=== PATIENT | female | born 1960 | race Caucasian/White ===

== ENCOUNTER 2017-04-07 21:54 | Emergency (ER) | payer SELFPAY ==
[2017-04-07 22:01] VITALS: BP 165/74; BMI 24.0
[2017-04-07] MEDS ORDERED: LEVAQUIN TAB 500 MG PO STA (22:42)
[2017-04-07] MEDS ORDERED: PREDNISONE TAB 20 MG PO ONE ×2 (22:43→23:09)
[2017-04-07] MEDS ORDERED: MOTRIN TAB 600 MG PO STA (22:46)
--- NOTE | 2017-04-07 22:50 | DR.GENAD ---
HPI - PCP Primary Care Physician: NFD - Complaint/Symptoms Chief Complaint:: DIZZINESS AND VOMITING X 2 DAYS AGO; UPPER RESP DRAINING Self Treatment fo Chief Complaint: ALBUTEROL BREATHING TREATMENT; EAVN SELTZER PLUS; THERAFLU; ROBITUSSIN - Source History Provided: Patient - Mode of Arrival Mode of Arrival: Ambulatory - Timing Onset of Chief Complaint: 04/06/17 PMH - PMH Past Medical History: Yes Past Medical History: [place] Past Medical History Comment: FEMORAL STENT TO LEFT LEG Past Surgical History: Yes Surgical History: Hysterectomy - Family History History of Family Medical Conditions: No Family Medical History: Diabetes Mellitus, Cancer, Hypertension - Social History Alcohol Use: None Do you use any recreational Drugs:: No Lives With: Family Lives Where: Home - infectious screening In the last 2 months have you had wt loss of >10#?: NO Have you had fever, night sweats or hemotysis?: No Have you traveled outside the country in the last 6 months?: No Isolation: Standard PE - Vital Signs Vitals: Temperature 100.2 F Pulse Rate 89 Respiratory Rate 22 Blood Pressure 165/74 O2 Sat by Pulse Oximetry 96 ROR - Labs Reviewed Laboratory Results Reviewed?: Yes (all lab result reviewed and discussed with patient) - Diagnosis Discharge Problem: Bronchitis Sinusitis, acute maxillary Qualifiers: Recurrence: not specified as recurrent Qualified Code(s): J01.00 - Acute maxillary sinusitis, unspecified - Discharge Plan Disposition: HOME, SELF-CARE Condition: Stable Prescriptions: Ciprofloxacin HCl [CIPRO 500 MG TAB *] 500 mg PO Q12H #20 tab Loratadine [Claritin] 10 mg PO DAILY #30 tab - Follow ups/Referrals Follow ups/Referrals: ELMA,Iyla [Primary Care Provider] - 3 days LAMAR DIOR [STAFF PHYSICIAN] - 3 days - Instructions Instructions: Sinusitis, Adult, [id number], Acute Bronchitis
[2017-04-07] MEDS ORDERED: FLONASE NASAL SPRAY ENOSTRIL SCH (23:00)
[2017-04-07] MEDS ORDERED: MOTRIN TAB 600 MG PO ONE (23:09)
[2017-04-07] MEDS ORDERED: LEVAQUIN TAB 500 MG ONE (23:09)
== END 2017-04-07 23:10 | disposition home or self-care (01) ==
LOC: ER 21:54
DX: J40 Bronchitis, not specified as acute or chronic (principal); J01.80 Other acute sinusitis
CPT/HCPCS: 87502; 99282; J7506

== ENCOUNTER 2024-08-18 21:26 | Inpatient (IN) ==
[2024-08-18 21:44] VITALS: BMI 28.5
--- NOTE | 2024-08-18 22:33 | DR.EXTPAIN ---
HPI Time seen Time Seen by Provider: 08/18/24 22:26 PCP Primary Care Physician: jacqueline Complaint/Symptoms Chief Complaint:: pt ambulated to triage room with complaint of chronic pain to lt lower leg COVID-19 Coronavirus risk:travel/contact w/high risk person: No Has patient experienced Coronavirus symptoms: No Nurses notes reviewed Nurses Notes Review: Yes Source History Provided: Patient Mode of arrival Mode of Arrival: Ambulatory Timing Onset of Chief Complaint: 07/28/24 PMH PMH Past Medical History: Yes Past Medical History: CHF, COPD, Coronary Artery Disease, Dyslipidemia, Hypertension and [place] Past Surgical History: Yes Surgical History: [employer] Surgery, Hysterectomy and Other Past Surgical History Comment: lt leg arteriogram with anginoplasty Family History History of Family Medical Conditions: Yes Family Medical History: Diabetes Mellitus, Cancer and Hypertension Social History Does patient currently use any type of tobacco product: Yes Have you used tobacco products in the last 12 months: Yes Type of Tobacco Use: Cigarettes Does any household member use tobacco: Yes Alcohol Use: None Do you use any recreational Drugs:: No Lives With: Family Lives Where: Home Travel Risk Coronavirus risk:travel/contact w/high risk person: No Has patient experienced Coronavirus symptoms: No Infectious screening In the last 2 months have you had wt loss of >10#?: NO Have you had fever, night sweats or hemotysis?: No Have you traveled outside the country in the last 6 months?: No Isolation: Standard ROS Review of Systems Constitutional: No Symptoms Reported and See HPI; negative Fever Eyes: No Symptoms Reported and See HPI ENTM: No Symptoms Reported and See HPI; negative Nose Discharge or Nose Congestion Respiratoy: No Symptoms Reported and See HPI; negative Moist Cough or Short of Breath Cardiovascular: No Symptoms Reported and See HPI; negative Chest Pain Gastrointestinal/Abdominal: No Symptoms Reported and See HPI; negative Abdominal Pain or Vomiting Genitourinary: No Symptoms Reported Neurological: No Symptoms Reported and See HPI; negative Headache Musculoskeletal: Leg (LEFT), Ankle (LEFT) and Foot (LEFT) Integumentary: No Symptoms Reported, See HPI and Other (DISTAL LEFT LEG DISCOLORED AND COLD.) Hematologic/Lymphatic: No Symptoms Reported and See HPI Endocrine: No Symptoms Reported and See HPI Psychiatric: No Symptoms Reported and See HPI All Other Systems: Reviewed and Negative PE Vital Signs Vitals: Vital Signs Temperature 98.2 F Pulse Rate 90 Respiratory Rate 19 Respiratory Rate 19 Respiratory Rate 18 Blood Pressure 168/72 Blood Pressure 166/72 Blood Pressure 190/77 Blood Pressure 190/77 Blood Pressure 178/81 Blood Pressure 178/81 Blood Pressure 177/62 Blood Pressure 195/82 Blood Pressure 194/83 Blood Pressure 197/83 Blood Pressure 197/83 Blood Pressure 192/84 Blood Pressure 192/80 Blood Pressure 206/88 O2 Sat by Pulse Oximetry 94 General Limitations: No Limitations General Appearance: Alert and In No Apparent Distress Head Head Exam: Normal Inspection Eyes Eye exam: Normal Appearance, PERRL and EOMI; negative Scleral Icterus or Conjunctival Injection ENT ENT Exam: Normal Exam, Normal Oropharynx, Normal External Ear Exam and TM's Normal Bilaterally Neck Neck Exam: Normal Inspection and Trachea Midline; negative Tenderness Chest Chest Inspection: Normal Inspection and Symmetric Chest Wall Rise; negative Tenderness Respiratory Respiratory Exam: Normal Lung Sounds Bilat; negative Accessory Muscle Use, Chest Wall Tenderness or Respiratory Distress Cardiovascular Cardiovascular Exam: Regular Rate, Normal Rhythm and Normal Heart Sounds; negative Systolic Murmur or Diastolic Murmur Abdominal Exam Abdominal Exam: Normal Inspection, Normal Bowel Sounds and Soft; negative Tenderness Extremities Extremities Exam: Normal Capillary Refill, Edema and Calf Tenderness (AND SWELLING.) ROR Labs Reviewed 08/22/24 05:51 08/22/24 05:51 Laboratory: WBC 9.1 X10^3/uL (3.6-10.0) 08/20/24 05:14 RBC 4.45 X10^6/uL (3.5-5.4) 08/20/24 05:14 Hgb 13.9 g/dL (12.0-16.0) 08/20/24 05:14 Hct 42.4 % (36.0-47.0) 08/20/24 05:14 MCV 95.3 fL (80.0-100.0) 08/20/24 05:14 MCH 31.1 pg (27.0-34.0) 08/20/24 05:14 MCHC 32.7 g/dL (33.0-35.0) L 08/20/24 05:14 RDW 15.2 % (11.6-16.5) 08/20/24 05:14 Plt Count 285 X10^3/uL (150.0-450.0) 08/20/24 05:14 MPV 8.3 fL (7.4-11.0) 08/20/24 05:14 Neut % (Auto) 86.9 % (42.0-75.0) H 08/20/24 05:14 Lymph % (Auto) 7.5 % (21.0-51.0) L 08/20/24 05:14 Keith % (Auto) 4.7 % (0.0-13.0) 08/20/24 05:14 Eos % (Auto) 0.2 % (0.9-2.9) L 08/20/24 05:14 Baso % (Auto) 0.7 % (0.2-1.0) 08/20/24 05:14 Neut # (Auto) 7.9 x10^3/uL (2.2-4.8) H 08/20/24 05:14 Lymph # (Auto) 0.7 X10^3/uL (1.3-2.9) L 08/20/24 05:14 Keith # (Auto) 0.4 x10^3/uL (0.3-0.8) 08/20/24 05:14 Eos # (Auto) 0.0 x10^3/uL (0.0-0.2) 08/20/24 05:14 Baso # (Auto) 0.1 X10^3/uL (0.0-0.1) 08/20/24 05:14 Absolute Nucleated RBC 0.1 /100WBC 08/20/24 05:14 Sodium 131 mmol/L (136-145) L 08/20/24 05:14 Corrected Sodium 132 mmol/L (136-145) L 08/20/24 05:14 Potassium 4.3 mmol/L (3.5-5.1) 08/20/24 05:14 Chloride 95 mmol/L (98-107) L 08/20/24 05:14 Carbon Dioxide 33.0 mmol/L (21-32) H 08/20/24 05:14 BUN 15 mg/dL (7-18) 08/20/24 05:14 Creatinine 0.72 mg/dL (0.55-1.02) 08/20/24 05:14 Est GFR (MDRD) Af Amer > 60 (>60) 08/20/24 05:14 Est GFR (MDRD) Non-Af > 60 (>60) 08/20/24 05:14 Glucose 123 mg/dL (65-99) H 08/20/24 05:14 Calcium 8.6 mg/dL (8.5-10.1) 08/20/24 05:14 Corrected Calcium 9.2 mg/dL (8.5-10.1) 08/20/24 05:14 Magnesium 2.0 mg/dL (2.0-2.9) 08/19/24 05:25 Total Bilirubin 0.40 mg/dL (0.2-1.0) 08/20/24 05:14 AST 7 Units/L (15-37) L 08/20/24 05:14 ALT 15 Units/L (12-78) 08/20/24 05:14 Alkaline Phosphatase 120 Units/L (46-116) H 08/20/24 05:14 Total Protein 7.6 g/dL (6.4-8.2) 08/20/24 05:14 Albumin 3.3 g/dL (3.4-5.0) L 08/20/24 05:14 Globulin 4.3 g/dL (2.5-4.5) 08/20/24 05:14 Albumin/Globulin Ratio 0.8 Ratio (1.1-2.1) L 08/20/24 05:14 Opioid Opioid Risk Tool Age (José Miguel box if 16-45): No History of Preadolescent Sexual Abuse: No Total: 0 Total Score Risk Category: Low Risk Copyright: Dakotah NERI predicting aberrant behaviors Discharge Plan Diagnosis Discharge Problem: Ischemic leg Hypertension Qualifiers: Hypertension type: primary hypertension Qualified Code(s): I10 - Essential (primary) hypertension Discharge Plan Patient Disposition: ADMITTED INPATIENT Condition: Stable Prescription drug monitoring program results: PDMP reviewed and no concerns identified Orders to Discharge Patient Discharge Orders: Discharge by Transfer to Outside Facility (Routine); Ordered 08/22/24 Ordered By: Sathish Laguerre
[2024-08-18 22:56] LABS: BASOPHILS # (AUTO) 0.1 X10^3/uL (0.0-0.1); EOSINOPHILS # (AUTO) 0.1 x10^3/uL (0.0-0.2); HEMATOCRIT 43.1 % (36.0-47.0); HEMOGLOBIN 14.8 g/dL (12.0-16.0); LYMPHOCYTES # (AUTO) 1.8 X10^3/uL (1.3-2.9); LYMPHOCYTES % (AUTO) 18.7 % (21.0-51.0); MONOCYTES # (AUTO) 0.7 x10^3/uL (0.3-0.8)
[2024-08-18 22:58] LABS: ALANINE AMINOTRANSFERASE 17 Units/L (12-78); ALBUMIN 3.6 g/dL (3.4-5.0); ALKALINE PHOSPHATASE 124 Units/L (46-116); ASPARTATE AMINO TRANSFERASE 10 Units/L (15-37); BLOOD UREA NITROGEN 15 mg/dL (7-18); CALCIUM 8.9 mg/dL (8.5-10.1); CARBON DIOXIDE 29.2 mmol/L (21-32); CHLORIDE 96 mmol/L (98-107); GLUCOSE 102 mg/dL (65-99); POTASSIUM 4.3 mmol/L (3.5-5.1); SODIUM 134 mmol/L (136-145); TOTAL PROTEIN 7.9 g/dL (6.4-8.2); eGFR NON BLACK RACES > 60 (>60)
[2024-08-18 23:06] LABS: BASOPHILS % (AUTO) 1.1 % (0.2-1.0); MEAN CORPUSCULAR HGB CONC 34.4 g/dL (33.0-35.0); MEAN CORPUSCULAR VOLUME 93.1 fL (80.0-100.0); MEAN PLATELET VOLUME 8.1 fL (7.4-11.0); MONOCYTES % (AUTO) 7.1 % (0.0-13.0); NEUTROPHILS # (AUTO) 7.1 x10^3/uL (2.2-4.8); NEUTROPHILS % (AUTO) 72.1 % (42.0-75.0); PLATELET COUNT 260 X10^3/uL (150.0-450.0); RED BLOOD COUNT 4.63 X10^6/uL (3.5-5.4); RED CELL DISTRIBUTION WIDTH 14.9 % (11.6-16.5); WHITE BLOOD COUNT 9.9 X10^3/uL (3.6-10.0)
[2024-08-19] MEDS: ZOFRAN INJ 4 MG VIAL IVP ONE (00:02)
[2024-08-19] MEDS: NS 1,000 ML IV 1,000 ML IV SCH (00:02)
[2024-08-19] MEDS: DILAUDID INJ IM ONE (00:05)
--- NOTE | 2024-08-19 01:13 | VAS ---
EXAM: LOWER EXT ARTERIAL-UNILATERAL HISTORY: LT FEM/POP BYPASS; COMPARISON: None available. TECHNIQUE: Multiple james scale and color flow Doppler images of the left lower extremity arterial system were obtained. Interrogation of the common femoral artery, superficial femoral artery, popliteal artery, and tibial arteries was performed. FINDINGS: Left femoral/popliteal bypass occluded. Monophasic waveforms are seen in the popliteal artery, posterior tibial and dorsalis pedis arteries secondary to reconstituted flow. IMPRESSION: Occluded left femoral/popliteal bypass graft. Monophasic arterial waveforms present in the left popliteal, posterior tibial and dorsalis pedis arteries. THIS IS AN ELECTRONICALLY VERIFIED FINAL REPORT 08/19/2024 1:09 AM - Electronically signed by Orlando Squires MD
[2024-08-19] MEDS: LOVENOX INJ 80 MG SYR SC ONE (01:32)
[2024-08-19] MEDS: APRESOLINE INJ 20 MG VIAL IVP ONE ×2 (01:36→02:32)
[2024-08-19] MEDS ORDERED: ZOFRAN INJ 4 MG VIAL IVP PRN (04:28)
[2024-08-19] MEDS: DILAUDID INJ IVP PRN (04:41)
[2024-08-19] MEDS: APRESOLINE INJ 20 MG VIAL IVP PRN (05:07)
[2024-08-19 05:55] LABS: BASOPHILS # (AUTO) 0.1 X10^3/uL (0.0-0.1); BASOPHILS % (AUTO) 0.8 % (0.2-1.0); EOSINOPHILS % (AUTO) 0.1 % (0.9-2.9); HEMATOCRIT 44.6 % (36.0-47.0); HEMOGLOBIN 15.1 g/dL (12.0-16.0); LYMPHOCYTES % (AUTO) 9.6 % (21.0-51.0); MEAN CORPUSCULAR HEMOGLOBIN 31.7 pg (27.0-34.0); MEAN CORPUSCULAR HGB CONC 33.9 g/dL (33.0-35.0); MEAN CORPUSCULAR VOLUME 93.5 fL (80.0-100.0); MEAN PLATELET VOLUME 8.1 fL (7.4-11.0); MONOCYTES # (AUTO) 0.6 x10^3/uL (0.3-0.8); MONOCYTES % (AUTO) 5.5 % (0.0-13.0); NEUTROPHILS # (AUTO) 9.1 x10^3/uL (2.2-4.8); PLATELET COUNT 299 X10^3/uL (150.0-450.0); RED BLOOD COUNT 4.77 X10^6/uL (3.5-5.4); WHITE BLOOD COUNT 10.8 X10^3/uL (3.6-10.0)
[2024-08-19 06:07] LABS: ALANINE AMINOTRANSFERASE 16 Units/L (12-78); ALBUMIN 3.5 g/dL (3.4-5.0); ALKALINE PHOSPHATASE 129 Units/L (46-116); ASPARTATE AMINO TRANSFERASE 12 Units/L (15-37); BLOOD UREA NITROGEN 15 mg/dL (7-18); CALCIUM 8.5 mg/dL (8.5-10.1); CARBON DIOXIDE 31.6 mmol/L (21-32); CHLORIDE 98 mmol/L (98-107); COR NA(FOR HYPERGLY) 135 mmol/L (136-145); CREATININE 0.64 mg/dL (0.55-1.02); GLUCOSE 141 mg/dL (65-99); SODIUM 134 mmol/L (136-145); TOTAL PROTEIN 8.2 g/dL (6.4-8.2); eGFR NON BLACK RACES > 60 (>60)
[2024-08-19] MEDS ORDERED: PROVENTIL NEB TX 0.083% 2.5MG/ 3ML NEB PRN (06:12)
[2024-08-19] MEDS ORDERED: PULMICORT NEB TX 0.5 MG NEB ONE (07:56)
[2024-08-19] MEDS ORDERED: OMNIPAQUE 350 mg/mL 50 mL BTL 50 ML ONE (08:11)
[2024-08-19] MEDS: PULMICORT NEB TX 0.5 MG NEB SCH (08:11)
[2024-08-19] MEDS ORDERED: OMNIPAQUE 350 mg/mL 100 mL BTL 100 ML ONE (08:11)
--- NOTE | 2024-08-19 08:19 | DR.H&P ---
H&P History & Physical for Day of: H&P Date: 08/19/24 Chief Complaint Chief Complaint: acute pain left leg History of Present Illness History of Present Illness: 64 yo female with history of left femoral-popliteal bypass several years ago in [place]. Patient now presents with several day history of acute pain in the left leg and has a cool left leg but can still move all of her toes. Past history of cardiac catherization showing calcifications but no coronary stents placed Patient also with significant tobacco abuse history, COPD, congestive heart failure, hyperlipidemia and hypertension. Patient continues to smoke heavily. Left lower extremity arterial Doppler study consistent with occlusion of the left femoral-popliteal bypass graft. Past Medical History Past Medical History: CHF, COPD, Coronary Artery Disease, Dyslipidemia, Hypertension and [place] Past Surgical History Surgical History: Hysterectomy and Other Family History Family Medical History: Cancer, Coronary Artery Disease and Hypertension Social History Does patient currently use any type of tobacco product: Yes Have you used tobacco products in the last 12 months: Yes Type of Tobacco Use: Cigarettes How many years tobacco product used: 50 Does any household member use tobacco: No Alcohol Use: None Drug Use: None Medications Home Medications: Home Medications Medication Instructions Recorded Confirmed Type albuterol sulfate 90 mcg/actuation inhalation 02/20/23 History aerosol inhaler amlodipine 10 mg tablet 10 mg PO DAILY 02/20/2301/27 History aspirin 81 mg tablet,delayed 81 mg PO DAILY 02/20/23 1 04/23/22 History release carvedilol 25 mg tablet 25 mg PO BID 02/20/23 History ezetimibe 10 mg tablet 10 mg PO QDAY 02/20/2302/20 History ezetimibe 10 mg tablet (Zetia) 10 mg PO DAILY 02/20/23 02/20/23 History fluticasone fur. 100 mcg-umeclid 1 ea inhalation QDAY 02/20/23 02/20/23 History 62.5 mcg-vilant 25 mcg inhalat.powder (Trelegy Ellipta) furosemide 20 mg tablet 20 mg PO BID 02/20/23 History gabapentin 300 mg capsule 300 mg PO TID 02/20/2302/20 History hydrochlorothiazide 25 mg tablet 25 mg PO DAILY 02/20/23 History isosorbide mononitrate 60 mg 60 mg PO QDAY 02/20/23 History tablet,extended release 24 hr losartan 100 mg tablet 100 mg PO DAILY 02/20/23 History montelukast 10 mg tablet 10 mg PO QDAY 02/20/2302/20 History rosuvastatin 40 mg tablet 40 mg PO QDAY 02/20/2302/20 History spironolactone 25 mg tablet 25 mg PO QDAY 02/20/23 History Allergies Allergies Allergy/AdvReac Type Severity Reaction Status Date / Time No Known Drug Allergies Allergy Verified 04/07/17 22:17 Labs 08/19/24 05:25 08/19/24 05:25 Labs: Laboratory WBC 10.8 X10^3/uL (3.6-10.0) H 08/19/24 05:25 RBC 4.77 X10^6/uL (3.5-5.4) 08/19/24 05:25 Hgb 15.1 g/dL (12.0-16.0) 08/19/24 05:25 Hct 44.6 % (36.0-47.0) 08/19/24 05:25 MCV 93.5 fL (80.0-100.0) 08/19/24 05:25 MCH 31.7 pg (27.0-34.0) 08/19/24 05:25 MCHC 33.9 g/dL (33.0-35.0) 08/19/24 05:25 RDW 15.0 % (11.6-16.5) 08/19/24 05:25 Plt Count 299 X10^3/uL (150.0-450.0) 08/19/24 05:25 MPV 8.1 fL (7.4-11.0) 08/19/24 05:25 Neut % (Auto) 84.0 % (42.0-75.0) H 08/19/24 05:25 Lymph % (Auto) 9.6 % (21.0-51.0) L 08/19/24 05:25 [place]uel % (Auto) 5.5 % (0.0-13.0) 08/19/24 05:25 Eos % (Auto) 0.1 % (0.9-2.9) L 08/19/24 05:25 Baso % (Auto) 0.8 % (0.2-1.0) 08/19/24 05:25 Neut # (Auto) 9.1 x10^3/uL (2.2-4.8) H 08/19/24 05:25 Lymph # (Auto) 1.0 X10^3/uL (1.3-2.9) L 08/19/24 05:25 Deuel # (Auto) 0.6 x10^3/uL (0.3-0.8) 08/19/24 05:25 Eos # (Auto) 0.0 x10^3/uL (0.0-0.2) 08/19/24 05:25 Baso # (Auto) 0.1 X10^3/uL (0.0-0.1) 08/19/24 05:25 Absolute Nucleated RBC 0.0 /100WBC 08/19/24 05:25 Sodium 134 mmol/L (136-145) L 08/19/24 05:25 Corrected Sodium 135 mmol/L (136-145) L 08/19/24 05:25 Potassium 4.0 mmol/L (3.5-5.1) 08/19/24 05:25 Chloride 98 mmol/L (98-107) 08/19/24 05:25 Carbon Dioxide 31.6 mmol/L (21-32) 08/19/24 05:25 BUN 15 mg/dL (7-18) 08/19/24 05:25 Creatinine 0.64 mg/dL (0.55-1.02) 08/19/24 05:25 Est GFR (MDRD) Af Amer > 60 (>60) 08/19/24 05:25 Est GFR (MDRD) Non-Af > 60 (>60) 08/19/24 05:25 Glucose 141 mg/dL (65-99) H 08/19/24 05:25 Calcium 8.5 mg/dL (8.5-10.1) 08/19/24 05:25 Corrected Calcium TNP 08/19/24 05:25 Magnesium 2.0 mg/dL (2.0-2.9) 08/19/24 05:25 Total Bilirubin 0.40 mg/dL (0.2-1.0) 08/19/24 05:25 AST 12 Units/L (15-37) L 08/19/24 05:25 ALT 16 Units/L (12-78) 08/19/24 05:25 Alkaline Phosphatase 129 Units/L (46-116) H 08/19/24 05:25 Total Protein 8.2 g/dL (6.4-8.2) 08/19/24 05:25 Albumin 3.5 g/dL (3.4-5.0) 08/19/24 05:25 Globulin 4.7 g/dL (2.5-4.5) H 08/19/24 05:25 Albumin/Globulin Ratio 0.7 Ratio (1.1-2.1) L 08/19/24 05:25 Review of Systems Constitutional: See HPI Eyes: No Symptoms Reported ENT: No Symptoms Reported Respiratory: No Symptoms Reported Cardiovascular: No Symptoms Reported Gastrointestinal: No Symptoms Reported Genitourinary: No Symptoms Reported Musculoskeletal: See HPI Skin: No Symptoms Reported Neurological: See HPI Physical Exam Vital Signs: Vital Signs Temperature 97.5 F Pulse Rate [Left Radial] 100 Respiratory Rate 18 Respiratory Rate 19 Respiratory Rate 21 Respiratory Rate 19 Blood Pressure [Left Arm] 168/60 Blood Pressure 165/67 Blood Pressure 168/74 Blood Pressure 165/72 Blood Pressure 168/72 Blood Pressure 166/72 Blood Pressure 190/77 Blood Pressure 190/77 Blood Pressure 178/81 Blood Pressure 178/81 Blood Pressure 177/62 Blood Pressure 195/82 Blood Pressure 194/83 Blood Pressure 197/83 Blood Pressure 197/83 Blood Pressure 192/84 Blood Pressure 192/80 O2 Sat by Pulse Oximetry 91 Oriented: Normal, Time, Person and Place Eyes: Normal Ear: Normal Nose: Normal Throat: Normal Respiratory: Wheezes Throughout Cardiovascular: Normal and Other (Palpable femoral pulses bilaterally. Cool left leg with no palpable distal pulses. Right foot warm at this time) : Normal Auscultation: Bowel Sounds: Normal Palpation: Normal Tenderness: Normal Skin: Normal Musculoskeletal: Normal Psychiatric: Normal Mood Description: Anxious Affect: Normal Speech Pattern: Clear and Appropriate Assessment/Plan (1) Atherosclerosis of [place] arteries of extremities with rest pain, left leg: Status: Acute Plan: Patient on therapeutic Lovenox. Will plan CT angiogram of the aorta with bilateral runoff today. Pain medications as necessary (2) Hypertension: Qualifiers: Hypertension type: primary hypertension Qualified Code(s): I10 - Essential (primary) hypertension Status: Acute Plan: Home medications (3) Chronic ischemic heart disease, unspecified: Status: Acute Plan: Home medications. Will review records from her felt puller Dr. Vera to decide if we need cardiology involved here. (4) Essential (primary) hypertension: Status: Acute Plan: Home medications (5) Congestive heart disease: Status: Acute Plan: Home medications, review Dr. Vera's records (6) Chronic obstructive pulmonary disease, unspecified: Status: Acute Plan: Home medications (7) Tobacco abuse: Status: Acute Plan: Nicotine patch (8) Dyslipidemia: Status: Acute Plan: Home medications Review H&P Reviewed: Yes Patient was examined?: Yes
[2024-08-19] MEDS: LOVENOX INJ 80 MG SYR SC SCH (08:45)
[2024-08-19] MEDS ORDERED: ISOSORBIDE MONONITRATE ER 24-HR PO SCH (09:00)
[2024-08-19] MEDS ORDERED: NORVASC TAB 10 MG PO SCH (09:00)
[2024-08-19] MEDS ORDERED: PATIENT'S HOME MEDICATION (Fluticasone-Umeclidin-Vilanter [Trelegy Ellipta] 100-62.5-25 mc IN SCH (09:00)
[2024-08-19] MEDS ORDERED: COREG TAB 25 MG PO SCH ×2 (09:00)
[2024-08-19] MEDS ORDERED: SINGULAIR TAB 10 MG PO SCH (09:00)
[2024-08-19] MEDS ORDERED: COZAAR PO SCH (09:00)
[2024-08-19] MEDS: NEURONTIN CAP 300 MG PO SCH (09:52)
[2024-08-19] MEDS: LASIX PO SCH (09:52)
[2024-08-19] MEDS: ISOSORBIDE MONONITRATE ER 24-HR PO SCH (09:52)
[2024-08-19] MEDS: ASPIRIN EC 81 MG PO SCH (09:52)
[2024-08-19] MEDS: NICOTINE PATCH TD SCH (09:52)
[2024-08-19] MEDS: COZAAR PO SCH (09:53)
[2024-08-19] MEDS: NORVASC TAB 10 MG PO SCH (09:53)
--- NOTE | 2024-08-19 09:56 | CT ---
EXAM: CT ANGIOGRAM ABDOMEN, PELVIS, AND BILATERAL LOWER EXTREMITIES WITH AND WITHOUT CONTRAST 3-DIMENSIONAL RECONSTRUCTED IMAGES AT INDEPENDENT WORKSTATION. HISTORY: acute ischemia left leg, occluded left fem-pop byp; . COMPARISON: Ultrasound from same date. TECHNIQUE: Axial CT images were obtained through the abdomen and pelvis and bilateral lower extremities both before after the intravenous administration of contrast. Coronal and sagittal reformatted images were included. MIP images were also performed. 3D reconstructions were performed with concurrent physician supervision at a separate independent workstation and MIP images were also performed. Informed written consent was obtained from the patient prior to contrast administration. All CT scans at this facility use dose modulation, iterative reconstruction, and/or weight based dosing when appropriate to reduce radiation dose to as low as reasonably achievable. FINDINGS: VASCULAR FINDINGS: ABDOMEN/PELVIS: Moderate abdominal aortic mixed plaque without aneurysm or stenosis. Moderate proximal celiac trunk stenosis secondary to mixed plaque. Superior mesenteric artery is patent without significant stenosis. Widely patent renal arteries. Patent inferior mesenteric artery. Left common iliac artery stent is patent. Completely occluded left external iliac artery stent and left external iliac artery. Moderate right common and external iliac artery plaque with approximate 50% stenosis in the mid right external iliac artery. LEFT LOWER EXTREMITY: Completely occluded left common femoral artery. Left profunda femoral artery is patent with mild flow. Left superficial femoral artery stent is completely occluded. Left femoral bypass graft is completely occluded. There is distal reconstitution in the left superficial femoral artery with small amount of flow. Left popliteal artery is somewhat diminutive but patent with mild calcified plaque. Patent left tibioperoneal trunk. The distal calf arteries are diminutive and poorly opacified, however there is arterial flow present in the mid to distal left calf arteries. RIGHT LOWER EXTREMITY: Mild mixed right common iliac artery plaque without stenosis. Patent right profunda femoral artery. Mixed plaque in the right superficial femoral artery with scattered areas of mild and moderate stenosis. Patent right popliteal artery and tibioperoneal trunk with mild mixed plaque. Right calf arteries are patent and there is a 3-vessel runoff to the right ankle. NON VASCULAR FINDINGS: Mild right basilar atelectasis. Unremarkable liver, gallbladder, spleen, and pancreas. Low-density left adrenal thickening without discrete nodule. Right adrenal is normal. Kidneys are unremarkable. No abnormally distended or focally thickened bowel loops. Mild colonic stool burden. No free peritoneal air or fluid. Unremarkable urinary bladder. Absent uterus. No acute osseous findings. Mild lumbar spondylosis. IMPRESSION: 1. Completely occluded left external iliac artery stent, left common/superficial femoral artery stent, and left femoral bypass graft. There is distal reconstitution in the distal left superficial femoral artery. Left calf arteries are diminutive but opacified with flow seen to the distal left calf. 2. Moderate right lower extremity peripheral vascular disease. 3-vessel runoff to the right ankle. THIS IS AN ELECTRONICALLY VERIFIED FINAL REPORT 08/19/2024 9:53 AM - Electronically signed by Emmanuel Adams MD
[2024-08-19] MEDS ORDERED: DUONEB 0.5 MG/3 MG (3 mL) NEB SCH (13:00)
[2024-08-19] MEDS: ALDACTONE TAB 25 MG PO SCH (13:22)
[2024-08-19] MEDS: ZETIA TAB 10 MG PO SCH (13:26)
[2024-08-19] MEDS: NICOTINE PATCH TD ONE (13:27)
[2024-08-19] MEDS: COREG TAB 3.125 MG PO SCH (13:48)
[2024-08-19] MEDS: CRESTOR TAB 10 MG PO SCH (21:01)
[2024-08-19] MEDS: SINGULAIR TAB 10 MG PO SCH (21:05)
[2024-08-20] MEDS: HIBICLENS WASH EXT PRN (04:49)
[2024-08-20 06:15] LABS: BASOPHILS # (AUTO) 0.1 X10^3/uL (0.0-0.1); BASOPHILS % (AUTO) 0.7 % (0.2-1.0); EOSINOPHILS % (AUTO) 0.2 % (0.9-2.9); HEMATOCRIT 42.4 % (36.0-47.0); HEMOGLOBIN 13.9 g/dL (12.0-16.0); LYMPHOCYTES # (AUTO) 0.7 X10^3/uL (1.3-2.9); LYMPHOCYTES % (AUTO) 7.5 % (21.0-51.0); MEAN CORPUSCULAR HEMOGLOBIN 31.1 pg (27.0-34.0); MEAN CORPUSCULAR HGB CONC 32.7 g/dL (33.0-35.0); MEAN CORPUSCULAR VOLUME 95.3 fL (80.0-100.0); MEAN PLATELET VOLUME 8.3 fL (7.4-11.0); MONOCYTES # (AUTO) 0.4 x10^3/uL (0.3-0.8); MONOCYTES % (AUTO) 4.7 % (0.0-13.0); NEUTROPHILS # (AUTO) 7.9 x10^3/uL (2.2-4.8); NEUTROPHILS % (AUTO) 86.9 % (42.0-75.0); PLATELET COUNT 285 X10^3/uL (150.0-450.0); RED BLOOD COUNT 4.45 X10^6/uL (3.5-5.4); RED CELL DISTRIBUTION WIDTH 15.2 % (11.6-16.5); WHITE BLOOD COUNT 9.1 X10^3/uL (3.6-10.0)
[2024-08-20 06:19] LABS: ALANINE AMINOTRANSFERASE 15 Units/L (12-78); ALBUMIN 3.3 g/dL (3.4-5.0); ALKALINE PHOSPHATASE 120 Units/L (46-116); ASPARTATE AMINO TRANSFERASE 7 Units/L (15-37); BLOOD UREA NITROGEN 15 mg/dL (7-18); CALCIUM 8.6 mg/dL (8.5-10.1); CHLORIDE 95 mmol/L (98-107); COR CA(FOR HYPOALB) 9.2 mg/dL (8.5-10.1); COR NA(FOR HYPERGLY) 132 mmol/L (136-145); CREATININE 0.72 mg/dL (0.55-1.02); GLUCOSE 123 mg/dL (65-99); POTASSIUM 4.3 mmol/L (3.5-5.1); SODIUM 131 mmol/L (136-145); TOTAL PROTEIN 7.6 g/dL (6.4-8.2); eGFR NON BLACK RACES > 60 (>60)
[2024-08-20 10:46] LABS: ABG BASE EXCESS 6.3 mmol/L (-2.0-2.0)
[2024-08-20 10:52] LABS: ABG ALLEN TEST POS
[2024-08-20 12:56] LABS: ABG BASE EXCESS 5.3 mmol/L (-2.0-2.0)
[2024-08-20] MEDS: PULMICORT NEB TX 0.5 MG NEB SCH (13:00)
[2024-08-20] MEDS: DUONEB 0.5 MG/3 MG (3 mL) NEB SCH (13:00)
--- NOTE | 2024-08-20 13:10 | EKG ---
Test Reason : preop Blood Pressure : */* mmHG Vent. Rate : 78 BPM Atrial Rate : 78 BPM P-R Int : 144 ms QRS Dur : 76 ms QT Int : 368 ms P-R-T Axes : 72 93 0 degrees QTc Int : 419 ms Normal sinus rhythm Rightward axis Septal infarct (cited on or before 26-MAY-2022) Abnormal ECG When compared with ECG of 20-FEB-2023 17:15, premature atrial complexes are no longer present Questionable change in initial forces of Anterior leads T wave inversion now evident in Inferior leads Confirmed by Solis Palafox MD ([id number]) on 08/20/2024 1:18:44 PM Referred By: Confirmed By: Solis Palafox MD
--- NOTE | 2024-08-20 15:09 | RAD ---
EXAM: CHEST, 1 VIEW HISTORY: hypoxia,pre-op; COMPARISON: 06/26/2024 TECHNIQUE: AP portable FINDINGS: Stable cardiac silhouette. Pulmonary vascular engorgement. Mild prominent perihilar interstitial and alveolar opacities. Mild bibasilar atelectasis. No large pleural effusion or visible pneumothorax. IMPRESSION: Pulmonary vascular engorgement with suspected central pulmonary edema. Mild bibasilar atelectasis. THIS IS AN ELECTRONICALLY VERIFIED FINAL REPORT 08/20/2024 3:06 PM - Electronically signed by Emmanuel Adams MD
--- NOTE | 2024-08-20 23:33 | NOTE.SOAP ---
Soap Note Note for Day of Date of Exam: 08/20/24 Subjective Data Subjective Data: Patient is a 64-year-old female with occluded left external iliac stent, occluded common femoral artery stent, occluded left femoral-popliteal bypass graft with severe ischemia of the left leg. Patient was to be scheduled for arterial invention today but anesthesia refused to do the case due to her pulmonary status. Patient with PaO2 on room air 25. Oxygen saturation on 6 L was 91% however pCO2 was greater than 60. Patient is a heavy smoker. Objective Data Temperature: 98.4 F Pulse Rate: 80 Respiratory Rate: 20 Blood Pressure: 117/59 O2 Sat by Pulse Oximetry: 91 Objective Data: Cool left foot. No palpable pulse in the left groin or left ankle Assessment Assessment: Critical limb threatening left leg with occluded left iliac artery stent and occluded left femoral-popliteal bypass graft. Plan Plan: We discussed transfer of this patient to her previous surgeon, Dr. Best at [facility] in [place].
[2024-08-21 05:17] LABS: ABG BASE EXCESS 8.2 mmol/L (-2.0-2.0)
[2024-08-21 05:18] LABS: ABG ALLEN TEST POS; ABG HCO3 37.5 mmol/L (22-26)
[2024-08-21 06:22] LABS: BASOPHILS # (AUTO) 0.1 X10^3/uL (0.0-0.1); BASOPHILS % (AUTO) 0.9 % (0.2-1.0); EOSINOPHILS % (AUTO) 0.3 % (0.9-2.9); HEMOGLOBIN 13.1 g/dL (12.0-16.0); LYMPHOCYTES # (AUTO) 1.1 X10^3/uL (1.3-2.9); MEAN CORPUSCULAR HEMOGLOBIN 31.4 pg (27.0-34.0); MEAN CORPUSCULAR HGB CONC 32.8 g/dL (33.0-35.0); MEAN CORPUSCULAR VOLUME 95.8 fL (80.0-100.0); MEAN PLATELET VOLUME 8.2 fL (7.4-11.0); MONOCYTES # (AUTO) 0.5 x10^3/uL (0.3-0.8); MONOCYTES % (AUTO) 6.1 % (0.0-13.0); NEUTROPHILS % (AUTO) 79.7 % (42.0-75.0); PLATELET COUNT 227 X10^3/uL (150.0-450.0); RED BLOOD COUNT 4.18 X10^6/uL (3.5-5.4); WHITE BLOOD COUNT 8.8 X10^3/uL (3.6-10.0)
[2024-08-21 06:47] LABS: ALANINE AMINOTRANSFERASE 20 Units/L (12-78); ALBUMIN 2.9 g/dL (3.4-5.0); ALKALINE PHOSPHATASE 105 Units/L (46-116); ASPARTATE AMINO TRANSFERASE 13 Units/L (15-37); BLOOD UREA NITROGEN 15 mg/dL (7-18); CALCIUM 8.5 mg/dL (8.5-10.1); CARBON DIOXIDE 34.1 mmol/L (21-32); CHLORIDE 101 mmol/L (98-107); COR CA(FOR HYPOALB) 9.4 mg/dL (8.5-10.1); CREATININE 0.69 mg/dL (0.55-1.02); GLUCOSE 104 mg/dL (65-99); POTASSIUM 4.5 mmol/L (3.5-5.1); SODIUM 139 mmol/L (136-145); eGFR NON BLACK RACES > 60 (>60)
[2024-08-21 08:58] LABS: ABG HCO3 33.7 mmol/L (22-26); ABG PO2 < 37.0 mmHg (80.0-100.0)
[2024-08-21 09:00] LABS: ABG HCO3 34.3 mmol/L (22-26)
[2024-08-21] MEDS: LASIX IVP ONE (11:20)
[2024-08-21] MEDS: DEPO-Medrol 80 MG VIAL IM ONE (11:21)
[2024-08-21] MEDS: NORCO 5/325 MG TAB PO PRN (22:13)
[2024-08-22 06:17] LABS: BASOPHILS # (AUTO) 0.1 X10^3/uL (0.0-0.1); BASOPHILS % (AUTO) 1.1 % (0.2-1.0); EOSINOPHILS # (AUTO) 0.1 x10^3/uL (0.0-0.2); HEMATOCRIT 40.5 % (36.0-47.0); HEMOGLOBIN 13.7 g/dL (12.0-16.0); LYMPHOCYTES # (AUTO) 1.3 X10^3/uL (1.3-2.9); LYMPHOCYTES % (AUTO) 14.9 % (21.0-51.0); MEAN CORPUSCULAR HEMOGLOBIN 32.1 pg (27.0-34.0); MEAN CORPUSCULAR HGB CONC 33.8 g/dL (33.0-35.0); MEAN CORPUSCULAR VOLUME 94.9 fL (80.0-100.0); MEAN PLATELET VOLUME 8.2 fL (7.4-11.0); MONOCYTES # (AUTO) 0.6 x10^3/uL (0.3-0.8); NEUTROPHILS # (AUTO) 6.7 x10^3/uL (2.2-4.8); PLATELET COUNT 241 X10^3/uL (150.0-450.0); RED BLOOD COUNT 4.27 X10^6/uL (3.5-5.4); RED CELL DISTRIBUTION WIDTH 14.9 % (11.6-16.5); WHITE BLOOD COUNT 8.8 X10^3/uL (3.6-10.0)
[2024-08-22 06:37] LABS: ALANINE AMINOTRANSFERASE 19 Units/L (12-78); ALBUMIN 2.9 g/dL (3.4-5.0); ALKALINE PHOSPHATASE 107 Units/L (46-116); ASPARTATE AMINO TRANSFERASE 13 Units/L (15-37); BLOOD UREA NITROGEN 11 mg/dL (7-18); CALCIUM 8.4 mg/dL (8.5-10.1); CARBON DIOXIDE 38.7 mmol/L (21-32); CHLORIDE 100 mmol/L (98-107); COR CA(FOR HYPOALB) 9.3 mg/dL (8.5-10.1); GLUCOSE 102 mg/dL (65-99); SODIUM 141 mmol/L (136-145); eGFR NON BLACK RACES > 60 (>60)
[2024-08-22] MEDS ORDERED: TUSSIONEX PENNKINETIC SUSP PO PRN (14:14)
--- NOTE | 2024-08-22 14:18 | NOTE.SOAP ---
Soap Note Note for Day of Date of Exam: 08/21/24 Subjective Data Subjective Data: Patient stable. Complaining of rest pain of the left leg. Still with good motor and sensory examination. Respiratory status is stable as well patient using BiPAP. Discussed transfer with [facility] in [place]. Dr. Bermudez is the vascular surgeon I spoke with and is the accepting surgeon. Patient to be taken onto the hospitalist service. I spoken with the hospitalist excepting the patient as well. Objective Data Temperature: 98.2 F Pulse Rate: 96 Respiratory Rate: 20 Blood Pressure: 144/63 O2 Sat by Pulse Oximetry: 95 Objective Data: Left foot cool with intact sensation and motor. Patient with BiPAP and maintaining good saturations. Assessment Assessment: Patient rest pain of the left leg with occluded left iliac stents and occluded left femoral-popliteal bypass graft. Patient with compromised respiratory status having anesthesia service will not sedate her at this hospital. Plan Plan: Patient has been accepted at [facility] in [place] but we are waiting for a bed. Hopefully bed will be available by tomorrow morning
--- NOTE | 2024-08-22 14:21 | NOTE.SOAP ---
Soap Note Note for Day of Date of Exam: 08/22/24 Subjective Data Subjective Data: Patient unchanged. Still with rest pain of the left leg awaiting bed availability for transfer to [facility] in [place], [place] Objective Data Temperature: 98.3 F Pulse Rate: 80 Respiratory Rate: 20 Blood Pressure: 148/66 O2 Sat by Pulse Oximetry: 94 Objective Data: Left leg cool. No wounds. Patient's foot is sensate, hemoglobin 13.7,Creatinine equal 0.60 Assessment Assessment: Critical ischemia of the left leg with occluded left iliac artery stents and occluded left femoral-popliteal bypass graft. Nursing assist refused sedation due to the patient's elevated pCO2 and respiratory status Plan Plan: Patient has been accepted as a patient at [facility] in [place] by Dr. Bermudez. Patient will be transferred as soon as a bed becomes available.
[2024-08-22] MEDS: ROBITUSSIN DM PO PRN (14:33)
[2024-08-22 20:10] VITALS: PULSE 82; TEMP 98.4; O2SAT 92
[2024-08-22 21:54] VITALS: RESP 16
[2024-08-22 22:24] VITALS: BP 180/80
[2024-08-22] MEDS: MAALOX or MYLANTA PO PRN (22:33)
--- NOTE | 2024-08-23 14:35 | W.DIS.FURT ---
Summary of Discharge Discharge Summary of Date Date of Exam: 08/22/24 Admission Date Date of Admission: 08/19/24 Admission Diagnosis Patient Problems (Updated 08/19/24 @ 08:17 by Sathish Laguerre) Hypertension (Acute) I10 Ischemic leg (Acute) I99.8 Hospital Course: This is a 63-year-old female with significant history of peripheral vascular disease, significant tobacco abuse, congestive heart failure, COPD, coronary disease and hyperlipidemia as well as hypertension, history of IA who presented to our emergency room with cpmplaint of severe rest pain of her left leg. She had been having pain for approximate 2 days and called her operating surgeon's office and they declined to see her telling her that they thought her pain was related to her back. She was admitted and placed on therapeutic Lovenox. Ultrasound showing complete occlusion of her left femoral popliteal bypass graft presumed be done with [place]. She was given pain medication. Follow-up CT angiogram showed complete occlusion of left iliac artery stents as well as complete occlusion of the left femoropopliteal bypass graft and complete occlusion of the left common femoral artery . I was planning peripheral based i ntervention of this ,however she has severe COPD. Room air PaO2 was 25. With oxygen her saturation was 91% however pCO2 was greater than 64 and our nurse anesthesia staff refused to sedate her. She requested to be transferred back to her operating surgeon at [facility] in [place]. I discussed this transfer with Dr. Bermudez, the partner of the operating surgeon on August 21 and he accepted the patient. It should be noted the patient has has pain but no evidence of tissue loss and no neurological impairment of the left foot yet. Unfortunately a bed was not available until approximately 6 PM on 22 August. She was transferred last night. She will have copies of the CT angiogram accompanying her. Vital Signs: Vital Signs (72 hours) 08/20/24 16:00 08/20/24 16:59 08/20/24 19:00 Temperature 97.7 F Pulse Rate 83 Pulse Rate [Left Radial] 85 Respiratory Rate 20 Blood Pressure Blood Pressure [Left Arm] 117/59 O2 Sat by Pulse Oximetry 95 88 L Oxygen Delivery Method Heated High Flow NC Bi-pap Oxygen Flow Rate FIO2% 39 08/20/24 20:00 08/20/24 20:15 08/20/24 20:15 Temperature 98.7 F Pulse Rate 84 Pulse Rate [Left Radial] 85 Respiratory Rate 20 20 Blood Pressure Blood Pressure [Left Arm] 155/68 O2 Sat by Pulse Oximetry 96 91 L Oxygen Delivery Method Bi-pap Heated High Flow NC Oxygen Flow Rate 8 FIO2% 40 08/20/24 20:50 08/20/24 20:50 08/20/24 21:53 Temperature Pulse Rate Pulse Rate [Left Radial] Respiratory Rate 22 Blood Pressure Blood Pressure [Left Arm] O2 Sat by Pulse Oximetry Oxygen Delivery Method Bi-pap Oxygen Flow Rate FIO2% 40 40 08/20/24 22:23 08/20/24 23:32 08/21/24 00:00 Temperature 98.4 F 97.5 F L Pulse Rate 80 Pulse Rate [Left Radial] 79 Respiratory Rate 20 20 19 Blood Pressure 117/59 Blood Pressure [Left Arm] 152/67 O2 Sat by Pulse Oximetry 91 L 99 Oxygen Delivery Method Bi-pap Oxygen Flow Rate FIO2% 08/21/24 04:00 08/21/24 05:24 08/21/24 05:26 Temperature 98.3 F Pulse Rate Pulse Rate [Left Radial] 86 Respiratory Rate 19 Blood Pressure Blood Pressure [Left Arm] 146/74 O2 Sat by Pulse Oximetry 97 Oxygen Delivery Method Bi-pap Bi-pap Oxygen Flow Rate FIO2% 35 35 08/21/24 07:00 08/21/24 07:24 08/21/24 08:00 Temperature 98.6 F Pulse Rate Pulse Rate [Left Radial] 76 Respiratory Rate 21 Blood Pressure Blood Pressure [Left Arm] 162/70 O2 Sat by Pulse Oximetry 97 Oxygen Delivery Method Heated High Flow NC Heated High Flow NC Oxygen Flow Rate FIO2% 37 35 38 08/21/24 08:11 08/21/24 08:11 08/21/24 12:00 Temperature 99.1 F Pulse Rate 75 Pulse Rate [Left Radial] 84 Respiratory Rate 21 Blood Pressure Blood Pressure [Left Arm] 140/66 O2 Sat by Pulse Oximetry 94 L 97 Oxygen Delivery Method Bi-pap Bi-pap Oxygen Flow Rate FIO2% 35 08/21/24 12:25 08/21/24 15:20 08/21/24 15:22 Temperature Pulse Rate Pulse Rate [Left Radial] Respiratory Rate 20 Blood Pressure Blood Pressure [Left Arm] O2 Sat by Pulse Oximetry Oxygen Delivery Method Heated High Flow NC Bi-pap Oxygen Flow Rate FIO2% 36 35 35 08/21/24 16:00 08/21/24 16:30 08/21/24 19:00 Temperature 97.6 F Pulse Rate Pulse Rate [Left Radial] 82 Respiratory Rate 19 Blood Pressure Blood Pressure [Left Arm] 122/58 O2 Sat by Pulse Oximetry 96 Oxygen Delivery Method Bi-pap Nasal Cannula Heated High Flow NC Oxygen Flow Rate 3 FIO2% 32 08/21/24 20:00 08/21/24 20:35 08/21/24 20:36 Temperature 98.2 F Pulse Rate 80 Pulse Rate [Left Radial] 96 H Respiratory Rate 20 Blood Pressure Blood Pressure [Left Arm] 144/63 O2 Sat by Pulse Oximetry 95 92 L Oxygen Delivery Method Heated High Flow NC Nasal Cannula Oxygen Flow Rate 2 FIO2% 28 08/21/24 22:13 08/21/24 23:13 08/21/24 23:58 Temperature 98.2 F Pulse Rate 96 H Pulse Rate [Left Radial] Respiratory Rate 18 16 20 Blood Pressure 144/63 Blood Pressure [Left Arm] O2 Sat by Pulse Oximetry 95 Oxygen Delivery Method Oxygen Flow Rate FIO2% 08/22/24 00:00 08/22/24 00:05 08/22/24 00:32 Temperature 97.9 F Pulse Rate 78 Pulse Rate [Left Radial] 97 H Respiratory Rate 20 20 Blood Pressure Blood Pressure [Left Arm] 153/65 O2 Sat by Pulse Oximetry 96 94 L Oxygen Delivery Method Heated High Flow NC Oxygen Flow Rate FIO2% 08/22/24 01:02 08/22/24 04:00 08/22/24 06:07 Temperature 98.0 F Pulse Rate 89 Pulse Rate [Left Radial] 97 H Respiratory Rate 20 20 Blood Pressure Blood Pressure [Left Arm] 154/65 O2 Sat by Pulse Oximetry 92 L 95 Oxygen Delivery Method Heated High Flow NC Oxygen Flow Rate FIO2% 08/22/24 07:55 08/22/24 08:08 08/22/24 08:09 Temperature 97.3 F L Pulse Rate Pulse Rate [Left Radial] 96 H Respiratory Rate 20 Blood Pressure Blood Pressure [Left Arm] 164/70 133/55 O2 Sat by Pulse Oximetry 91 L Oxygen Delivery Method Nasal Cannula Nasal Cannula Oxygen Flow Rate 2 2 FIO2% 28 08/22/24 09:12 08/22/24 12:02 08/22/24 14:21 Temperature 98.3 F 98.3 F Pulse Rate 80 Pulse Rate [Left Radial] 80 Respiratory Rate 20 20 Blood Pressure 148/66 Blood Pressure [Left Arm] 148/66 O2 Sat by Pulse Oximetry 94 L 94 L Oxygen Delivery Method Nasal Cannula Nasal Cannula Oxygen Flow Rate 2 2 FIO2% 08/22/24 16:39 08/22/24 19:00 08/22/24 19:59 Temperature 98.0 F Pulse Rate Pulse Rate [Left Radial] 88 Respiratory Rate 20 22 Blood Pressure Blood Pressure [Left Arm] 146/63 O2 Sat by Pulse Oximetry 91 L Oxygen Delivery Method Nasal Cannula Nasal Cannula Oxygen Flow Rate 2 2 FIO2% 08/22/24 20:00 08/22/24 20:05 08/22/24 20:29 Temperature 98.4 F Pulse Rate Pulse Rate [Left Radial] 82 Respiratory Rate 20 16 Blood Pressure Blood Pressure [Left Arm] 194/77 170/68 O2 Sat by Pulse Oximetry 92 L Oxygen Delivery Method Nasal Cannula Oxygen Flow Rate 2 FIO2% 08/22/24 22:15 Temperature Pulse Rate Pulse Rate [Left Radial] Respiratory Rate Blood Pressure Blood Pressure [Left Arm] 180/80 O2 Sat by Pulse Oximetry Oxygen Delivery Method Oxygen Flow Rate FIO2% Labs: Laboratory Last Values WBC 8.8 X10^3/uL (3.6-10.0) 08/22/24 05:51 RBC 4.27 X10^6/uL (3.5-5.4) 08/22/24 05:51 Hgb 13.7 g/dL (12.0-16.0) 08/22/24 05:51 Hct 40.5 % (36.0-47.0) 08/22/24 05:51 MCV 94.9 fL (80.0-100.0) 08/22/24 05:51 MCH 32.1 pg (27.0-34.0) 08/22/24 05:51 MCHC 33.8 g/dL (33.0-35.0) 08/22/24 05:51 RDW 14.9 % (11.6-16.5) 08/22/24 05:51 Plt Count 241 X10^3/uL (150.0-450.0) 08/22/24 05:51 MPV 8.2 fL (7.4-11.0) 08/22/24 05:51 Neut % (Auto) 76.0 % (42.0-75.0) H 08/22/24 05:51 Lymph % (Auto) 14.9 % (21.0-51.0) L 08/22/24 05:51 [place] % (Auto) 7.0 % (0.0-13.0) 08/22/24 05:51 Eos % (Auto) 1.0 % (0.9-2.9) 08/22/24 05:51 Baso % (Auto) 1.1 % (0.2-1.0) H 08/22/24 05:51 Neut # (Auto) 6.7 x10^3/uL (2.2-4.8) H 08/22/24 05:51 Lymph # (Auto) 1.3 X10^3/uL (1.3-2.9) 08/22/24 05:51 [place] # (Auto) 0.6 x10^3/uL (0.3-0.8) 08/22/24 05:51 Eos # (Auto) 0.1 x10^3/uL (0.0-0.2) 08/22/24 05:51 Baso # (Auto) 0.1 X10^3/uL (0.0-0.1) 08/22/24 05:51 Absolute Nucleated RBC 0.1 /100WBC 08/22/24 05:51 Sample Site Lr 08/21/24 05:12 ABG pH 7.290 (7.35-7.45) L 08/21/24 05:12 ABG pCO2 78.0 mmHg (35.0-45.0) H* 08/21/24 05:12 ABG pO2 93.0 mmHg (80.0-100.0) 08/21/24 05:12 ABG HCO3 37.5 mmol/L (22-26) H* 08/21/24 05:12 ABG O2 Saturation 96.0 % (90-100) 08/21/24 05:12 ABG Base Excess 8.2 mmol/L (-2.0-2.0) H 08/21/24 05:12 [place] Test Pos 08/21/24 05:12 A-a Gradient 95.0 mmHg 08/21/24 05:12 FiO2 40.0 08/21/24 05:12 Blood Gas Comments Josh well ae 08/21/24 05:12 Sodium 141 mmol/L (136-145) 08/22/24 05:51 Corrected Sodium TNP 08/22/24 05:51 Potassium 4.0 mmol/L (3.5-5.1) 08/22/24 05:51 Chloride 100 mmol/L (98-107) 08/22/24 05:51 Carbon Dioxide 38.7 mmol/L (21-32) H 08/22/24 05:51 BUN 11 mg/dL (7-18) 08/22/24 05:51 Creatinine 0.60 mg/dL (0.55-1.02) 08/22/24 05:51 Est GFR (MDRD) Af Amer > 60 (>60) 08/22/24 05:51 Est GFR (MDRD) Non-Af > 60 (>60) 08/22/24 05:51 Glucose 102 mg/dL (65-99) H 08/22/24 05:51 POC Glucose (mg/dL) 136 mg/dL (65-99) H 08/21/24 16:13 Calcium 8.4 mg/dL (8.5-10.1) L 08/22/24 05:51 Corrected Calcium 9.3 mg/dL (8.5-10.1) 08/22/24 05:51 Magnesium 2.0 mg/dL (2.0-2.9) 08/19/24 05:25 Total Bilirubin 0.20 mg/dL (0.2-1.0) 08/22/24 05:51 AST 13 Units/L (15-37) L 08/22/24 05:51 ALT 19 Units/L (12-78) 08/22/24 05:51 Alkaline Phosphatase 107 Units/L (46-116) 08/22/24 05:51 Total Protein 7.0 g/dL (6.4-8.2) 08/22/24 05:51 Albumin 2.9 g/dL (3.4-5.0) L 08/22/24 05:51 Globulin 4.1 g/dL (2.5-4.5) 08/22/24 05:51 Albumin/Globulin Ratio 0.7 Ratio (1.1-2.1) L 08/22/24 05:51 Reason For Visit: COPD, RESPIRATORY FAILURE, ISCHEMIC LLE Discharge Date Discharge Date: 08/22/24 Discharge Diagnosis All Active Problems (Updated 08/19/24 @ 08:17 by Sathish Laguerre) Dyslipidemia (Acute) Tobacco abuse (Acute) Chronic obstructive pulmonary disease, unspecified (Acute) Congestive heart disease (Acute) Essential (primary) hypertension (Acute) Chronic ischemic heart disease, unspecified (Acute) Atherosclerosis of [place] arteries of extremities with rest pain, left leg (Acute) Hypertension (Acute) Ischemic leg (Acute) COPD exacerbation (Acute) Pneumonia (Acute) COPD exacerbation (Acute) CHANDRA (dyspnea on exertion) (Acute) SOB (shortness of breath) (Acute) Bronchitis (Acute) Allergic rhinitis (Acute) Bronchitis (Acute) Sinusitis, acute maxillary (Acute) URI (upper respiratory infection) (Acute) Influenza (Acute) Upper respiratory infection (Acute) Plan of Treatment: Continue with present treatment and follow up plan. Pt is to keep follow up appointment as instructed and take medications as ordered. Discharge Medications Discharge Medications: No Known Drug Allergies Allergy (Verified 04/07/17 22:17) CONTINUE taking the following medications escitalopram oxalate 20 mg tablet 20 mg PO QDAY 08/19/24 [History] montelukast 10 mg tablet 10 mg PO QDAY 08/19/24 [History] nitroglycerin 0.4 mg sublingual tablet (Nitrostat) 0.4 mg sublingual PRN PRN 08/19/24 [History] Discharge Disposition Assessment: see hospital course Discharge Plan Discharge Plan Hospital Course: This is a 63-year-old female with significant history of peripheral vascular disease, significant tobacco abuse, congestive heart failure, COPD, coronary disease and hyperlipidemia as well as hypertension, history of IA who presented to our emergency room with cpmplaint of severe rest pain of her left leg. She had been having pain for approximate 2 days and called her operating surgeon's office and they declined to see her telling her that they thought her pain was related to her back. She was admitted and placed on therapeutic Lovenox. Ultrasound showing complete occlusion of her left femoral popliteal bypass graft presumed be done with [place]. She was given pain medication. Follow-up CT angiogram showed complete occlusion of left iliac artery stents as well as complete occlusion of the left femoropopliteal bypass graft and complete occlusion of the left common femoral artery . I was planning peripheral based intervention of this ,however she has severe COPD. Room air PaO2 was 25. With oxygen her saturation was 91% however pCO2 was greater than 64 and our nurse anesthesia staff refused to sedate her. She requested to be transferred back to her operating surgeon at [facility] in [place]. I discussed this transfer with Dr. Bermudez, the partner of the operating surgeon on August 21 and he accepted the patient. It should be noted the patient has has pain but no evidence of tissue loss and no neurological impairment of the left foot yet. Unfortunately a bed was not available until approximately 6 PM on 22 August. She was transferred last night. She will have copies of the CT angiogram accompanying her. Patient Disposition: [facility] Condition: Stable Health Concerns: Post Hospitalization: new medications and changes needed to prevent readmission or further decline. Pt educated and given instructions on all concerns. Care Plan Goals: Problem: Pain/Alteration in Comfort Goal: Improve/ Resolve Pain; Achieve Pain Tolerance Instructions: Take pain medications as prescribed. Contact your primary care provider if your pain is unrelieved or worsens. Follow up with primary care provider as directed. Plan of Treatment: Continue with present treatment and follow up plan. Pt is to keep follow up appointment as instructed and take medications as ordered. Assessment: see hospital course Prescription drug monitoring program results: PDMP reviewed and no concerns identified Prescriptions: Continued isosorbide mononitrate 60 mg tablet extended release 24 hr 60 mg PO QDAY montelukast 10 mg tablet 10 mg PO QDAY furosemide 20 mg tablet 20 mg PO BID albuterol sulfate [Ventolin HFA] 90 mcg/actuation HFA aerosol inhaler 1 puff inhalation 4-6XD PRN rosuvastatin 40 mg tablet 40 mg PO QDAY Trelegy Ellipta 100-62.5-25 mcg blister with device 1 ea INHALATION QDAY carvedilol 25 mg Tablet 3.125 mg PO BID aspirin 81 mg Tablet,Delayed Release (Dr/Ec) 81 mg PO DAILY gabapentin 300 mg capsule 300 mg PO TID hydrochlorothiazide 25 mg Tablet 25 mg PO DAILY losartan 100 mg Tablet 100 mg PO DAILY escitalopram oxalate 20 mg tablet 20 mg PO QDAY nitroglycerin [Nitrostat] 0.4 mg Tablet, Sublingual 0.4 mg sublingual PRN PRN Rx Instructions: Q5min PRN montelukast 10 mg tablet 10 mg PO QDAY Orders to Discharge Patient Discharge Orders: Discharge by Transfer to Outside Facility (Routine); Ordered 08/22/24 Ordered By: Sathish Laguerre Follow ups/Referrals Follow ups/Referrals: AMYRA HOLDER [Primary Care Provider, MEDICAL] - 3 days Instructions Stand Alone Forms: Find Help Web Site Print Language: [place]
== END 2024-08-22 23:00 | disposition short-term general hospital (02) | DRG 299 ==
LOC: ER 21:31 → MED/SURG 08-19 03:09 → INTOOBSV 08-19 03:09 → MED/SURG 08-19 04:08 → ICU 08-22 20:30
PROVIDERS: ADMIT Surgery; ATTEND Surgery
DX: J96.00 Acute respiratory failure, unspecified whether with hypoxia or hypercapnia; I25.10 Atherosclerotic heart disease of native coronary artery without angina pectoris; R40.0 Somnolence; I25.2 Old myocardial infarction; R94.31 Abnormal electrocardiogram [ECG] [EKG]; Z65.8 Other specified problems related to psychosocial circumstances; I70.222 Atherosclerosis of native arteries of extremities with rest pain, left leg; E87.1 Hypo-osmolality and hyponatremia; I11.0 Hypertensive heart disease with heart failure; Z01.810 Encounter for preprocedural cardiovascular examination; J44.9 Chronic obstructive pulmonary disease, unspecified; E78.5 Hyperlipidemia, unspecified; I50.89 Other heart failure